=== PATIENT | male | born 1945 | race Caucasian/White ===

== ENCOUNTER 2023-08-01 08:52 | Inpatient (IN) | payer MEDICARE, SELFPAY ==
[2023-07-19 10:59] VITALS: BMI 23.7
[2023-08-01] VITALS (12 sets, daily range): BP systolic 92–137; BP diastolic 40–78; PULSE 60–97; RESP 12–20; TEMP 36.1–36.6; O2SAT 95–100; BMI 23.7
--- NOTE | 2023-08-01 | PATH_ITS ---
[facility] Accession Number: [id number] No. of containers..01 Tissue . 01 Material submitted: . knee - KNEE SYNOVIUM . 01 Diagnosis: Soft Tissue, Knee Synovium, Excision: Extensively necrotic tissue with focal mild acute and chronic inflammation. MRV 08/07/2023 1602 Local . 01 Comment: Given the necrosis of the specimen, the tissue is not further classifiable. . 01 Electronically signed: . Sun Elena MD, Pathologist NPI- [id number] . 01 Gross description: . The specimen is received in formalin labeled with the patient's name, , and knee synovium consists of a pale silva, rubbery soft tissue fragment measuring 5.4 x 3.8 x 3.2 cm. Sectioning reveals a silva, friable, soft cut surface. Glaze Mixer sections are submitted in cassettes A1-A2. ([id number]) /MRV 08/03/2023 1710 Local . 01 Pathologist provided ICD-10: M17.11 . 01 CPT . 045033 Specimen Comment: A courtesy copy of this report has been sent to [phone] Performed at: 01 [facility] [address] [place] [address] Suite [facility], [place], [place] [id number] MD Homer Tirado MD Phone: [phone]
--- NOTE | 2023-08-01 06:00 | DI.RAD.S_ITS ---
PROCEDURE: XR KNEE RT 1TO2V INDICATIONS: TKA TECHNIQUE: 2 view(s) of the knee acquired. COMPARISON: [facility] Outside Film, CR, XR KNEE 4+ VIEWS RIGHT, 06/23/2022, 14:24. [facility], CR, XR KNEE ARTHRITIC SERIES BI, 05/19/2023, 13:51. FINDINGS: Bones: Patient is status post knee joint arthroplasty. Hardware components are in expected positions. Visualized bony structures are intact. Soft tissues: Overlying postoperative changes are noted. IMPRESSION: Expected postsurgical changes. Dictated by: Johnathan Morris M.D. on 08/01/2023 at 14:41 Approved by: Johnathan Morris M.D. on 08/01/2023 at 14:41
[2023-08-01] MEDS: ACETAMINOPHEN 325 MG TABLET 975 MG PO (09:10)
[2023-08-01] MEDS: CELECOXIB 200 MG CAPSULE PO (09:10)
[2023-08-01] MEDS: LACTATED RINGERS 1,000 ML 42 ML IV (09:11)
[2023-08-01] MEDS: VANCOMYCIN 1,000 MG/200 ML PIGGYBACK 200 MG IV (09:31)
--- NOTE | 2023-08-01 10:58 | P.OP_ITS ---
Operative Date/Time/Diagnoses Date of procedure: 08/01/23 Time of procedure: 11:20 Pre-op diagnosis: Right knee OA Post-op diagnosis: same Procedure & Clinicians Procedure: Right total knee arthroplasty Same procedure as scheduled: Yes Indications: The patient has had progressively worsening right knee pain with radiographic changes consistent with arthritis. Non-operative management has failed and the patient has requested total knee replacement. The risks, benefits and alternatives to surgery were discussed with the patient prior to proceeding. Risks discussed included, but were not limited to, failure to relieve pain, stiffness, infection, nerve damage, deep venous thrombosis, pulmonary embolism, stroke, coma, heart attack, permanent paralysis and , as well as the potential need for eventual revision of the prosthetic. Surgeon: Danni Macdonald Temperature Inspector: Boo Guy Anesthesia Type: Spinal Operative Notes Findings: Severe right knee OA, adequate stability, adequate bone Closure Type: primary Specimen(s): none sent Prosthetic devices, grafts, tissues, transplants, or devices: Macdonald and [facility]hew [facility] BCS 2 size 6 femur, size 6 tibia, +9 poly, 35 x 9 mm patella Estimated Blood Loss (mL): 250 Blood products transfused: none Tourniquet time (min): 70 Procedure in detail: The patient was seen in the pre-operative area, where the patient identified the right knee as the operative site and this was marked with my initials. The patient received pre-operative antibiotics, and was taken to the operating room and placed on the operative table in the supine position. After satisfactory anesthesia, a full time babysitter out was performed. The right leg was encircled with a tourniquet about the proximal thigh, and the leg was prepared from the toes to the tourniquet with ChloroPrep in the usual fashion and draped through sterile drapes. The leg was elevated and exsanguinated with Eschmark bandage and the tourniquet inflated to [250] mmHg pressure. A PA was used throughout the procedure and was essential for retraction and intraoperative positioning. They were helpful for implanting the components safely and assisting with the visualization and hemostasis. The knee was approached through an approximately 18 cm incision centered over the patella and carried into the knee through a medial parapatellar arthrotomy. A portion of the medial and lateral meniscus was resected. He had substantial thickening and somewhat atypical tissue in his suprapatellar pouch and synovium. It looked consistent with an atypical synovitis. It was sent for routine path ology. It Did not look consistent with infection. Soft tissue was carefully mobilized around the patella the patella was measured with a caliper. Bone was resected from the patella and the patellar height was reconstituted with up an appropriate sized patellar component. A cover was then placed on the patella. A small amount of additional medial and lateral meniscus was resected. The distal femur was cut at 5?. A [+2] cut was used. It looked like an appropriate distal femoral cut and the cut was made without difficulty. An extramedullary guide was used for the tibial cut. 10 mm was resected off the least affected side.The tibia was prepared. The rotation was assessed. The patient was placed in extension residual medial and lateral meniscus as well as any residual bone was carefully resected. [No] additional tibia was resected. Hemostasis was achieved especially posteriorly. Additional local was injected into the posterior capsule. The extension gap was assessed and additional rele ases for gap balancing were performed as necessary. It was checked with the gap sound cutter. The femoral component was trial was placed and the notch was finished. The rotation was assessed and the appropriate size femoral guide was placed on the distal femur and finishing cuts were made. There was no evidence of notching. The anterior, posterior and chamfer cuts were then made. The posterior osteophytes and soft tissues were then removed. The posterior capsule was injected with part of a mixture of 60 ml 0.25% Marcaine mixed with 20 ml Exparel for post operative pain control. The remainder of this mixture was injected into the capsule and subcutaneous tissues during cement curing. The tibial and femoral components were then placed and the knee placed through a range of motion. Range of motion was [0-130], with good stability throughout the range. The trials were then removed, and the tibia was finished. The bone was prepared with pulsatile lavage, and dried with a sponge. Cement was applied and the final prosthetics placed. Excess cement was removed during and after cement curing. A brief Betadine soak was performed. After confirming there was no extruded cement posteriorly, the final tibial insert was placed. The knee was copiously irrigated and the tourniquet deflated. Hemostasis was obtained with the Bovie cautery. A drain was placed and brought out superolaterally. The capsule was closed with interrupted nonabsorbable suture. The subcutaneous layer was closed with barbed sutures, and the skin with a running 3-0 V-Lock suture and Surgical glue. An Aquacel Ag dressing was applied and the patient was taken to recovery having tolerated the procedure well. Complications: none Post-operative Condition: stable Disposition: Acute Care Plan for aftercare: The patient will be maintained on a standard total knee replacement protocol with weight bearing as tolerated. The patient will receive Xarelto and sequential compression devices for DVT prophylaxis. The patient will be discharged home when safe for the home environment.
--- NOTE | 2023-08-01 10:58 | PM.PREOP ---
Pre-operative Note Interval Note History & Physical reviewed/Exam performed by Physician: Yes Changes to H&P: No
[2023-08-01] MEDS: CEFAZOLIN 2 GM/100 ML PREMIX 100 ML IV ×2 (11:28→18:44)
[2023-08-01] MEDS: TRANEXAMIC ACID 1,000 MG VIAL 2000 MG INJ (11:37)
--- NOTE | 2023-08-01 12:04 | SUR.OPER ---
Supine on padded OR bed. Pillow under head, arms secured on padded armboards <90 degree abduction. Safety belt across torso. Non-operative leg secured with tape over blanket over lower leg. Operative leg secured in DeMayo positioner. Foam padded brace at thigh of operative leg.
[2023-08-01] MEDS: ACETAMINOPHEN 325 MG TABLET 650 MG PO ×2 (15:02→21:10)
[2023-08-01] MEDS: IBUPROFEN 400 MG TABLET PO ×3 (15:03→21:09)
[2023-08-01] MEDS: polyethylene glycoL 3350 17 GM POWD.PACK PO (15:05)
--- NOTE | 2023-08-01 15:17 | PT.IIE ---
Current Diagnoses Unilateral primary osteoarthritis, right knee (08/01/23) Surgery Performed Operation Date: 08/01/23 10:45 Actual Procedures p Total Knee Arthroplasty(Right) - Danni Macdonald MD Surgical History (Last Updated 07/19/23 @ 11:17 by Kishan Nation, RN) History of lung biopsy History of total knee arthroplasty Medical History (Last Updated 07/19/23 @ 11:41 by Kishan Nation, MARIA R) Family history of malignant hyperthermia History of DVT (deep vein thrombosis) Prostate cancer Physical Therapy Inpatient Evaluation/Re-Eval M1 PT/OT-IP Prior Functional Status Start: 08/01/23 16:39 Freq: NEEDED Status: Active Protocol: Document 08/01/23 16:41 AB (Rec: 08/01/23 17:08 AB [id number]) Medical Review Prior Functional Status Medical History Reviewed Yes Communication Pt is able to express and communicate all needs. Mobility and Gait IND, did not use AD prior to surgery Activities of Daily Living and IADL's IND Prior Functional Level (Other details) Pt reports he has a tremor at baseline. Social History Household Members spouse Living Arrangements House Number of Floors (Floors) One Floor Number of Stairs To Enter/Railing? 1 small CRISTHIAN through garage, no railing Home Environment Standard Height Toilet,Walk in Shower Home Equipment Front Wheel Walker,Straight Cane,Raised Toilet Seat Without Armrests,Shower Seat without Backrest,Hand Held Shower Additional Social History Comment The pt reports there is one very sturdy towel apoorva near the toilet which he can use as needed. His spouse is able to assist him 24/7. M2 PT-IP Current Condition Start: 08/01/23 16:39 Freq: NEEDED Status: Active Protocol: Document 08/01/23 16:41 AB (Rec: 08/01/23 17:08 AB [id number]) Physical Therapy Current Condition Current Condition Evaluation Date 08/01/23 Treatment Diagnosis s/p right TKA Onset Date 08/01/23 M3 PT-IP Subjective Start: 08/01/23 16:39 Freq: NEEDED Status: Active Protocol: Document 08/01/23 16:41 AB (Rec: 08/01/23 17:08 AB [id number]) Subjective Physical Therapy Visit Type Type Initial Evaluation Visit Start Time 15:17 Visit Stop Time 16:14 Total Visit Minutes 57 Notes The pt presents semi supine in bed with family at bedside, after handoff from RN and having just recieved pain medication. Number of INTAKE COUNSELOR Visits 0 Physical Therapy Visit Comments Patient Comments The pt reports he is currently at 4/10 right knee pain, but is feeling fine otherwise. He is agreeable to PT evaluation this afternoon. Patient Goals The pt reports he would like to go home today if he is able . Therapy Pain Assessment Pain When Pain Assessed At Rest Pain Present Pain Present Pain Reported Location Right Knee Intensity 4 Scale Used Numeric (0 - 10) Pain Management Techniques Apply Cold,Elevation,Re- positioning M4 PT-IP Mobility and Gait Start: 08/01/23 16:39 Freq: NEEDED Status: Active Protocol: Document 08/01/23 16:41 AB (Rec: 08/01/23 17:08 AB [id number]) PT-Bed Mobility Assessment Rolling Type of Rolling Bilateral Level of Assist Independent Supine to Sit Supine to Sit Independent Sit to Supine Sit to Supine Independent Scooting Scooting to Edge of Bed Independent Scooting Up and Down in Bed Independent PT-Transfer Assessment Sit to and From Stand Sit to and from Stand Independent,Use of Upper Extremities Equipment Transfer Assistive Device Gait Belt,Front Wheeled Walker Transfers Transfer Destination Bed,Toilet Transfer Technique Stand Step Pivot Transfer Ability Level of Assist Standby Assistance,1 Person Assistance,Use of Upper Extremities Gait Assessment Gait Gait Assistance Required: Standby Assistance,1 Person Assist Distance (Feet) 290 Assistive Devices Assistive Device Gait Belt,Front Wheeled Walker Gait Deviations General Gait Pattern Antalgic,Decreased Stride Length,Decreased Feet Clearance Factors Limiting Gait Function Factors Limiting Gait Function Decreased Activity Tolerance, Decreased Strength,Limited Range of Motion,Pain Comments Gait Comments Gait deviations are consistent with surgical procedure. Stair Climbing Assessment Evaluation Level of Assist On Stairs Standby Assistance,1 Person Assistance Devices Stair Climbing Assistive Devices Left Railing,Right Railing Technique/Endurance Stair Climbing Direction Ascend and Descend Stair Climbing Technique Step to Step Number of Steps Climbed 3 Query Text: Stair Climbing Set # Repetitions (reps) 1 Comments Stair Climbing Comments Pt was education on leading with non surgical LE when ascending and with surgical LE when descending. PT-Balance Assessment Sitting Balance and Reactions Static Sitting Balance Ability Normal Dynamic Sitting Balance Ability Normal Standing Balance and Reactions Static Standing Balance Ability Normal Dynamic Standing Balance Ability Good M5 PT-IP Objective Assessments Start: 08/01/23 16:39 Freq: NEEDED Status: Active Protocol: Document 08/01/23 16:41 AB (Rec: 08/01/23 17:08 AB [id number]) Orientation Orientation/Cognition Level of Alertness Alert Orientation Name,Date,Place,Situation Language Function Ability No Deficits Noted Safety Awareness Understands Safety Issues Memory Description No Deficits Noted Gross Range of Motion Upper Extremity ROM Assessment Within Functional Limits Lower Extremity ROM Assessment Right Impaired Strength Upper Extremity Strength Assessment Within Functional Limits Lower Extremity Strength Assessment Right Impaired M6 PT-IP Treatment Start: 08/01/23 16:39 Freq: NEEDED Status: Active Protocol: Document 08/01/23 16:41 AB (Rec: 08/01/23 17:08 AB [id number]) Physical Therapy Treatment Exercises Knee ROM Measurement 5-90 Education Education Provided Precautions,Weight Bearing Status,Post-Op Packet,Safety Brace Education Patient,Caregiver Other Treatments Other Treatment Performed Pt's BP was measured at 127/76 mmHg in semi supine at the start of the session, and he denied symptoms of lightheadedness or dizzines throughout. The pt has urinary incontinence when he performs STS, but is not aware until after PT points this out. He continues to have this incontinence with subsequent STS and when performing stairs . At end of session, the pt returned to his bed with all needs, call light within reach and family at bedside. RN was notified about findings. M7 PT-IP Assessment and Plan Start: 08/01/23 16:39 Freq: NEEDED Status: Active Protocol: Document 08/01/23 16:41 AB (Rec: 08/01/23 17:08 AB [id number]) PT Summary Assessment and Plan Potential Rehabilitation Potential Good Status of Condition at Evaluation Stable Summary Impairments Pain,ROM,Strength,Transfers, Gait,Activity Tolerance Assessment Summary Jeffrey Sandhu is a 77 year old male patient who is s/p right TKA performed on 08/01/23. Today's PT evaluation revealed RLE ROM and muscular weakness which are causing gait deviations and difficulty performing functional mobility , however they are consistent with this surgical procedure. Currently, he is able to perform bed mobility and STS with IND, but requires SBA for transfers, ambulation and stairs. He is able to ambulate 290ft with FWW and is able to ascend/descend 3 steps with 2 hand rails. No abnormal instability or LOB were noted at this time, and he demonstrates good safety awareness. Based on these findings and his current level of function, discharge to home and outpatient PT is recommended by PT. However, he would benefit from skilled PT during his hospital stay. Of note, the pt had urinary incontinence which he was unaware of until PT pointed this out when performing STS, ambulation and stairs, which is not typical for the pt. Goals Bed Mobility Goal Independent Transfer Goal Independent,Front Wheeled Walker Gait Goal Independent,Front Wheel Walker Gait Distance 500 Other Goals Pt to be able to ascend/ descend 3 steps with IND using proper technique to demonstrate good LE strength to perform functional mobility safely upon discharge. Days to Meet Goals 5 Frequency of Treatment Frequency Of Treatment Twice a Day Treatment Plan Physical Therapy Treatment Plan Bed Mobility Training,Transfer Training,Gait Training, Therapeutic Exercise,Balance Retraining,Post Op Education, Neuromuscular Re-ed Other Recommendations and Next Treatment Continue focusing on Focus functional mobility; add therapeutic exericses as indicated. Weight Bearing Status Weight Bearing Status Weight Bear as Tolerated Recommendations To Nursing Amount of Assist Needed Standby Assistance Discharge Recommendations PT Discharge Recommendations Home,Outpatient PT Transportation Needs at Discharge Private Vehicle
[2023-08-01] MEDS: OXYCODONE IR 10 MG TABLET PO (16:24)
[2023-08-01] MEDS: LACTATED RINGERS 1,000 ML 100 ML IV (18:44)
[2023-08-01] MEDS: RIVAROXABAN 10 MG TABLET 20 MG PO (21:09)
[2023-08-01] MEDS: ASPIRIN EC 81 MG TABLET PO (21:09)
[2023-08-01] MEDS: DOCUSATE 100 MG CAPSULE PO (21:09)
[2023-08-02 02:00] VITALS: BP 115/59; PULSE 46; TEMP 36.3; O2SAT 98
[2023-08-02] MEDS: CEFAZOLIN 2 GM/100 ML PREMIX 100 ML IV (02:20)
[2023-08-02] MEDS: IBUPROFEN 400 MG TABLET PO (02:21)
[2023-08-02] MEDS: ACETAMINOPHEN 325 MG TABLET 650 MG PO ×2 (02:22→08:48)
[2023-08-02 06:09] LABS: Hematocrit 32.6 % (41-53); Hemoglobin 11.5 g/dL (13.5-17.5)
[2023-08-02 06:27] VITALS: BP 105/55; PULSE 47; RESP 12; TEMP 36.3; O2SAT 97
--- NOTE | 2023-08-02 07:14 | PM.DS.1 ---
History of Present Illness History of Present Illness Date Patient Seen: 08/02/23 Time Patient Seen: 07:14 Chief complaint: INPT Narrative: Operative Date/Time/Diagnoses Date of procedure: 08/01/23 Time of procedure: 11:20 Pre-op diagnosis: Right knee OA Post-op diagnosis: same Procedure & Clinicians Procedure: Right total knee arthroplasty Same procedure as scheduled: Yes Indications: The patient has had progressively worsening right knee pain with radiographic changes consistent with arthritis. Non-operative management has failed and the patient has requested total knee replacement. The risks, benefits and alternatives to surgery were discussed with the patient prior to proceeding. Risks discussed included, but were not limited to, failure to relieve pain, stiffness, infection, nerve damage, deep venous thrombosis, pulmonary embolism, stroke, coma, heart attack, permanent paralysis and , as well as the potential need for eventual revision of the prosthetic. Surgeon: Danni Macdonald Admissions Representative: Boo Guy Anesthesia Type: Spinal Operative Notes Findings: Severe right knee OA, adequate stability, adequate bone Closure Type: primary Specimen(s): none sent Prosthetic devices, grafts, tissues, transplants, or devices: Macdonald and Nephew [employer] BCS 2 size 6 femur, size 6 tibia, +9 poly, 35 x 9 mm patella Estimated Blood Loss (mL): 250 Blood products transfused: none Tourniquet time (min): 70 Discharge Providers Provider Date of admission: 08/01/23 08:52 Discharge Date: 08/02/23 Primary care physician: Joshua Palmer ND Consults: 08/01/23 06:00 Consult to Anesthesiology Routine Comment: Consulting Provider: Anesthesiologist Reason for consultation: Regional block for post operative pain control 08/01/23 14:31 Consult to Discharge Planning Routine Comment: Consult to Occupational Therapy Evaluate & Treat Comment: Physician Instructions: Evaluate and treat Consult to Physical Therapy Evaluate & Treat Comment: Physician Instructions: postop TKA protocol Discharge provider: Zaynab Sands PA-C Summary Hospital Course Discharge Diagnosis: Right knee osteoarthritis, s/p right total knee arthroplasty Hospital Course: Mr Sandhu's hospital course was unremarkable. On the morning of POD# 1, he was feeling well and wanted to go home. He was eating and voiding without difficulty and his pain was well-controlled with oral medication. He was evaluated by PT and felt to be safe for discharge to home. Exam Vital Signs (past 8 hours): - 08/02/23 02:00 08/02/23 06:27 Temperature 97.4 F L 97.3 F L Pulse Rate 46 L 47 L Respiratory Rate 12 Blood Pressure 115/59 L 105/55 L Pulse Oximetry 98 97 Oxygen Delivery Method Room Air Oxygen Flow Rate 0 Narrative Exam Narrative: 5/5 strength in hip flexors, quadriceps, hamstrings, DF, PF, EHL on right. Sensation to light touch intact throughout RLE. Calf soft and compressible. LETITIA wrap over Aquacel CDI. Objective Labs 08/02/23 05:25 Labs: Laboratory Results - last 24 hr 08/02/23 05:25 Hgb 11.5 L Hct 32.6 L PFSH Medical History (Updated 07/19/23 @ 11:41 by Kishan Nation RN) Family history of malignant hyperthermia History of DVT (deep vein thrombosis) Prostate cancer Surgical History (Updated 07/19/23 @ 11:17 by Kishan Nation RN) History of lung biopsy History of total knee arthroplasty Social History household members: spouse Smoking Status: Never smoker alcohol intake: current Discharge Assessment & Plan Assessment and Plan Assessment: Right knee osteoarthritis, s/p right total knee arthroplasty Plan of Treatment: Discharge home after PT today for additional training/reinforcement. Pt has d/c medications at home. Xarelto as per preop for VTE prophylaxis. Outpt PT, f/u in office in 2 weeks as scheduled. Discharge Plan Discharge Plan Patient Disposition: Home Discharge orders & Medications Prescriptions: Continued Xarelto 20 mg Tablet 20 mg PO DAILY Rx Instructions: must administer with evening meal latanoprost 0.005 % Drops 1 drp OPHTHALMIC (EYE) DAILY Follow up/Referrals: Joshua Palmer ARNP [Primary Care Provider] - Danni Macdonald MD [Physician] - As previously scheduled (Follow up w/ Es Natarajan PA-C, on 08/10/2023 @ 4:10 pm at [facility] office in [place].) Diet/Activity/Treatments Diet: Diet as Tolerated Activity: Walk frequently! Cold/Heat Therapy: Ice to knee as needed for pain. Skin/Wound/Dressing Care Report to your healthcare provider any signs of infection, such as:: chills, fever, night sweats, unusual drainage and unusual redness Dressing: May remove LETITIA wrap and shower on 08/04/2023. Leave dressing in place until follow up in office. No bathing or otherwise soaking incision. Call the office if the dressing becomes saturated inside. Visit Report/Discharge Packet Instructions: DI for Knee Replacement, DI for Prescription Opioid Use Stand Alone Forms: Patient Portal/API, Stroke Signs & Symptoms, Surgery Discharge Discharge Data Primary Care Provider: Joshua Palmer VTE Deep Vein Thrombosis/Pulmonary Embolism Present on Admission: No
[2023-08-02 08:00] VITALS: BP 115/58; PULSE 52; RESP 18; TEMP 36.1; O2SAT 99
--- NOTE | 2023-08-02 08:41 | CM.DANOTE ---
Initial DCP Assessment Note: Pt is a 77 year-old man admitted for total right knee replacement. Plan is for d/c later this morning following PT/OT visit. No further d/c needs identified at this time. will transport home. Payor: [employer] Medicare Attending: Danni Macdonald PCP: Joshua GOODMAN reviewed EMR for medical status and identified d/c needs. Pt has d/c orders and summary in EMR, pt expresses ready to go home, pain is under control. PT recomments outpatient PT, and is assessed to be safe for home w/family assistance. Discharge Planning/Care Management CM Discharge Assessment Start: 08/02/23 08:37 Freq: Status: Active Protocol: Document 08/02/23 08:38 DPL (Rec: 08/02/23 08:41 DPL [id number]) Discharge Planning Assessment Assigned Foreign Exchange Trader REX Armijo Advance Directives? Yes Advance Directives on File No History Provided By Patient,Medical Record Prior Living Arrangements House Household Members spouse Type of transporation used prior to Drives own vehicle admit Independent with ADL's Yes Is patient alert and oriented? Yes Needs Assistance With Home Chores / Shopping Caregiver for Another No Comment N/A DME Already Rented / Owned FWW / Walker,Cane Comment Shower seat, raised toilet seat Comment None Barriers to Discharge No Discharge Plan Home Community Services Physical Therapy Transportation Arrangement Spouse Referrals Initiated None needed Review Status In Process Please Provide Date Initial DC 08/02/23 Assessment Was Performed Pre-Anesthesia Assessment Start: 07/19/23 10:59 Freq: Status: Complete Protocol: Document 07/19/23 10:59 AK (Rec: 07/19/23 11:51 AK [id number]) Pre-Anesthesia Assessment Preferred Name Jeffrey Patient Information Reviewed Via Phone Assessment Assessment Completed With Patient Primary Care Provider Joshua Palmer Comment [facility] Medical Clearance Received No Seen Specialist in Last 12 Months Yes Specialist Seen Orthopedist Preferred Language Kinyarwanda Height 180.34 cm Weight 77.111 kg Body Mass Index (BMI) 23.7 Hearing Ability Hearing Impaired,Use of Hearing Aid Visual Impairment Partially Limited Visual Assist Glasses Dentition Type Teeth, Natural Present Barriers to Learning Auditory Hx Anesthesia Reactions No Hx Family Anesthesia Reaction Yes: Father-MH Hx Malignant Hyperthermia Yes: Father Hx Blood Transfusions No Hx Blood Transfusion Reaction No Comment OR notified regarding family Hx of MH Anesthesia Review Requested No Morgue Attendant No alcohol intake current alcohol intake frequency a few times a week Smoking Status Never smoker Substance Use Type does not use Pain Present Pain Reported Comment Right knee Musculoskeletal Symptoms Joint Pain History of Falling (Recent or History of No ) Patient is completely paralyzed or No completely immobile Ambulatory Aid None/bed rest/nurse assist Gait/Transferring Normal/bedrest/immobile Mental Status Oriented to own ability Is patient on oxygen? No Does patient have IVORY/SOB No Hx Sleep Apnea No Currently Taking a Beta Oksana No Can You Climb a Flight of Stairs Without Yes SOB Hx Chest Pain No Hx SOB No Hx Syncope or Dizziness No Anti-Coagulant Therapy Yes: Xarelto-to stop 3 days prior to DOS per patient Has a Explosive Ordnance Manager No Hx Pacemaker/ICD No Pacemaker Rep Required? No Diet Type At Home Regular Dysphagia No Urinary Catheter Present No Hx Urinary Self Catheterization No Diabetes No Hx Drug Resistant Organism No Presence of External or Internal Medical Yes: Left TKA Devices Marital Status Lives With spouse Current Living Arrangements House Number of Floors (Floors) One Floor Number of Stairs To Enter/Railing? 1/yes Support System Spouse Does the Patient Have Assistance After Yes Surgery Patient Discharge Plan Description Return Home Feels Safe in Current Environment Yes Been Physically Hurt or Threatened By a No Person in Current Environment Do you have thoughts of harming yourself None or others? Are you currently considering suicide? No Do you have a plan to hurt yourself or No Plan others? Do You Have Any Spiritual Beliefs That No May Affect Your HC Choices? Do You Have Any Cultural Practices That No May Affect Your HC Choices? Who Can We Speak to About Patient's Care Nathalie Metzgeramie Identifying Code for Release of Patient declined Information Health Care Proxy/Next of Kin Nathalie Edson Health Care Proxy Emergency Contact Name Nathalie Sandhu Emergency Contact Advance Directives? Yes Requested Patient Bring Advanced Yes Directives DOS Power of Job Order Clerk Yes Power of Job Order Clerk Name Nathalie Sandhu Power of Job Order Clerk PAC Instructions Assistance for 24 hours post- op,Do not shave/clip surgical site,Medications to take/avoid ,Nasal antibiotic,NPO,Post-op transportation,Pre-surgical wash,Sensory aids,Sturdy shoes /comfortable clothes,Do not bring valuables and remove jewelry
[2023-08-02] MEDS: OXYCODONE IR 5 MG TABLET PO (08:49)
[2023-08-02] MEDS: DOCUSATE 100 MG CAPSULE PO (08:49)
--- NOTE | 2023-08-02 09:00 | OT.IP.EVAL ---
Current Diagnoses Unilateral primary osteoarthritis, right knee (08/01/23) Surgery Performed Operation Date: 08/01/23 10:45 Actual Procedures p Total Knee Arthroplasty(Right) - Danni Macdonald MD Past Medical History (Last Updated 07/19/23 @ 11:41 by Kishan Nation, RN) Family history of malignant hyperthermia History of DVT (deep vein thrombosis) Prostate cancer Surgical History (Last Updated 07/19/23 @ 11:17 by Kishan Nation, RN) History of lung biopsy History of total knee arthroplasty Occupational Therapy Inpatient Evaluation/Re-Eval M1 PT/OT-IP Prior Functional Status Start: 08/01/23 16:39 Freq: NEEDED Status: Active Protocol: Document 08/02/23 09:00 [facility] (Rec: 08/02/23 09:30 [facility] [id number]) Medical Review Prior Functional Status Medical History Reviewed Yes Communication Pt is able to express and communicate all needs. Mobility and Gait IND, did not use AD prior to surgery Activities of Daily Living and IADL's IND but had difficulty to put on his socks and shoes. Prior Functional Level (Other details) Pt reports he has a tremor at baseline. Social History Household Members spouse Living Arrangements House Number of Floors (Floors) One Floor Number of Stairs To Enter/Railing? 1 small CRISTHIAN through garage, no railing Home Environment Standard Height Toilet,Walk in Shower Home Equipment Front Wheel Walker,Straight Cane,Raised Toilet Seat Without Armrests,Shower Seat without Backrest,Hand Held Shower,Greige Goods Examiner Additional Social History Comment The pt reports there is one very sturdy towel apoorva near the toilet which he can use as needed. His spouse is able to assist him 24/7. M2 OT-IP Current Condition Start: 08/02/23 09:18 Freq: Status: Active Protocol: Document 08/02/23 09:00 [facility] (Rec: 08/02/23 09:30 [facility] [id number]) Occupational Therapy Current Condition Current Condition Evaluation Date 08/02/23 Treatment Diagnosis S/P R TKA M3 OT- IP Subjective and Pain Start: 08/02/23 09:18 Freq: Status: Active Protocol: Document 08/02/23 09:00 [facility] (Rec: 08/02/23 09:30 [facility] [id number]) OT- Subjective Occupational Therapy Visit Type Type Initial Evaluation Visit Start Time 08:35 Visit Stop Time 09:11 Total Visit Minutes 27 Notes Pt seen from [id number] and [phone]- [phone] Occupational Therapy Visit Comments Patient Comments Pt agreed to get dressed and work with OT. Patient/Caregiver Goals TO go home. OT Pain Assessment Pain When Pain Assessed At Rest Pain Present Pain Present Pain Reported Location Right Knee Intensity 5 Scale Used Numeric (0 - 10) M4 OT- IP ADL's Start: 08/02/23 09:18 Freq: Status: Active Protocol: Document 08/02/23 09:00 [facility] (Rec: 08/02/23 09:30 [facility] [id number]) OT [id number]-[id number] General Evaluation Self-Feeding Ability Independent OT ADL-Grooming General Evaluation Grooming Ability Independent OT ADL-Oral Care General Eval Oral Care Ability Independent OT ADL-Dressing General Eval Upper Body Dressing Ability Independent Lower Body Dressing Ability Minimal Assistance Comments OT Dressing Comments Assist to tie his shoes and thread the non slip socks through his pants. Educated pt to britney his RLE first and take out last . In addition to put his boxers and pants on so just having to stand one time to britney over his hips. OT ADL-Toileting General Evaluation Toileting Ability Independent Comments OT Toileting Comments Educated pt to use the urinal at night as he gets up 2-3 times. Also educated pt to be mindful of his knee positioning while wiping and that standing can be easier and use of wet wipes for hygiene needs. OT ADL-Bathing Comments OT Bathing Comments Pt states his will be able to assist him. M5 OT- IP IADL's Start: 08/02/23 09:18 Freq: Status: Active Protocol: Document 08/02/23 09:00 [facility] (Rec: 08/02/23 09:30 [facility] [id number]) OT-Instrumental Activities of Daily Living Deficits IADL Deficits Identified Deficits Home Safety Awareness Awareness of Need for Assistance at Home Good Awareness Ability to Problem Solve Emergency Able to Problem Solve Situations Meal Preparation Meal Preparation Caregiver Provides Assist Senior Project Controls Specialist Senior Project Controls Specialist Caregiver Provides Assist M6 OT- IP Functional Cognition Start: 08/02/23 09:18 Freq: Status: Active Protocol: Document 08/02/23 09:00 [facility] (Rec: 08/02/23 09:30 [facility] [id number]) Cognitive Factors Limiting Selfcare Function Cognitive Ability Level of Alertness Alert Patient Orientation Name,Age,Birthday,Month,Date, Year,Day of Week,Place, Situation Attention Span Ability Capable of Focused Attention, Capable of Sustained Attention Ability to Follow Commands Able to Follow Multi-Step Commands Safety Awareness No Deficits Noted Cognitive Comments Cognitive Assessment Comments Pt intact. OT- Vision and Hearing OT- Hearing Assessment OT- Hearing Assessment WFL OT- Vision Assessment Visual Acuity Glasses All The Time Visual Attentiveness WFL Occular Pursuits WFL M7 OT- IP Mobility and Balance Start: 08/02/23 09:18 Freq: Status: Active Protocol: Document 08/02/23 09:00 [facility] (Rec: 08/02/23 09:30 [facility] [id number]) OT- Bed Mobility Assessment Supine to Sit Supine to Sit Assist Independent OT-Transfer Assessment Sit to and From Stand Sit to and from Stand Standby Assistance Transfers Transfer Ability Standby Assistance Technique Transfer Destination Bed,Chair,Toilet Transfer Technique Stand Step Pivot Devices Transfer Assistive Devices Front Wheeled Walker Comments Mobility Comments Pt able to do transfers and bed mobility with good safety. Able to talk about car transfers best to back up to the car with the seat all the way back and rotate his legs and trunk at the same time to get in. OT- Balance Assessment Sitting Balance and Reactions Static Sitting Balance Ability Normal Dynamic Sitting Balance Ability Normal Standing Balance and Reactions Static Standing Balance Ability Good Dynamic Standing Balance Ability Good M8 OT- IP Objective Assessments Start: 08/02/23 09:18 Freq: Status: Active Protocol: Document 08/02/23 09:00 [facility] (Rec: 08/02/23 09:30 [facility] [id number]) OT Gross Range of Motion Upper Extremity Range of Motion Assessment Within Functional Limits OT- Coordination Assessment Comments Coordination Comments Pt has tremors in his RUE. M9 OT- IP Assessment and Plan Start: 08/02/23 09:18 Freq: Status: Active Protocol: Document 08/02/23 09:00 [facility] (Rec: 08/02/23 09:30 [facility] [id number]) OT Summary Assessment and Plan Potential Rehabilitation Potential Excellent Analytic Complexity at Evaluation Low Summary OT Impairments Pain,Balance,Functional Mobility,Dressing,Bathing Progress Towards Goals Progressing Toward Goals Assessment Summary Pt low complexity and main barrier is pain. Pt has a supportive to assist at home. Pt to go home today and have outpt PT. Goals Dressing Goal Independent Bathing Goal Independent Shower Transfer Goal Independent Days to Meet Goals 2 Frequency of Treatment Frequency Of Treatment Once a Day Treatment Plan OT Treatment Plan ADL Training,Functional Mobility,Patient/Family Education,Discharge Planning Discharge Recommendations OT Discharge Recommendations Home with Assistance, Outpatient PT Transportation Needs at Discharge Private Vehicle
--- NOTE | 2023-08-02 09:08 | PT.IPTN ---
Current Diagnoses Unilateral primary osteoarthritis, right knee (08/01/23) Surgery Performed Operation Date: 08/01/23 10:45 Actual Procedures p Total Knee Arthroplasty(Right) - Danni Macdonald MD Physical Therapy Treatment Note M2 PT-IP Current Condition Start: 08/01/23 16:39 Freq: NEEDED Status: Active Protocol: Document 08/01/23 16:41 AB (Rec: 08/01/23 17:08 AB [id number]) Physical Therapy Current Condition Current Condition Evaluation Date 08/01/23 Treatment Diagnosis s/p right TKA Onset Date 08/01/23 M3 PT-IP Subjective Start: 08/01/23 16:39 Freq: NEEDED Status: Active Protocol: Document 08/02/23 09:40 TS (Rec: 08/02/23 09:52 TS [id number]) Subjective Physical Therapy Visit Type Type Treatment Note Visit Start Time 09:08 Visit Stop Time 09:30 Total Visit Minutes 22 Number of GLOBE CLEANER Visits 1 Physical Therapy Visit Comments Patient Comments Pt reports he is feeling good, is agreeable to PT. M4 PT-IP Mobility and Gait Start: 08/01/23 16:39 Freq: NEEDED Status: Active Protocol: Document 08/02/23 09:40 TS (Rec: 08/02/23 09:52 TS [id number]) PT-Transfer Assessment Sit to and From Stand Sit to and from Stand Independent Equipment Transfer Assistive Device Gait Belt,Front Wheeled Walker Comments Mobility Comments Pt found resting in chair, agreeable to PT. Sit to stand from chair with FWW Ind with BUE support pushing from arms of chair. He ambulated ~220' SBA w/FWW and emerging step thru gait, had no buckling or LOB. He performed stairs x3 SBA with B handrail assist, demonstrated good carryover of step sequencing. PT was left back in chair with call light nearby, all needs met. Gait Assessment Gait Gait Assistance Required: Standby Assistance,1 Person Assist Distance (Feet) 220 Assistive Devices Assistive Device Gait Belt,Front Wheeled Walker Gait Deviations General Gait Pattern Antalgic,Decreased Stride Length,Decreased Feet Clearance Factors Limiting Gait Function Factors Limiting Gait Function Decreased Strength,Limited Range of Motion,Pain Comments Gait Comments See mobility comments. Stair Climbing Assessment Evaluation Level of Assist On Stairs Standby Assistance,1 Person Assistance Devices Stair Climbing Assistive Devices Left Railing,Right Railing Technique/Endurance Stair Climbing Direction Ascend and Descend Stair Climbing Technique Step to Step Number of Steps Climbed 3 Stair Climbing Set # Repetitions (reps) 1 Comments Stair Climbing Comments See mobility comments. PT-Balance Assessment Sitting Balance and Reactions Static Sitting Balance Ability Normal Dynamic Sitting Balance Ability Normal Standing Balance and Reactions Static Standing Balance Ability Good Dynamic Standing Balance Ability Good M5 PT-IP Objective Assessments Start: 08/01/23 16:39 Freq: NEEDED Status: Active Protocol: Document 08/01/23 16:41 AB (Rec: 08/01/23 17:08 AB [id number]) Orientation Orientation/Cognition Level of Alertness Alert Orientation Name,Date,Place,Situation Language Function Ability No Deficits Noted Safety Awareness Understands Safety Issues Memory Description No Deficits Noted Gross Range of Motion Upper Extremity ROM Assessment Within Functional Limits Lower Extremity ROM Assessment Right Impaired Strength Upper Extremity Strength Assessment Within Functional Limits Lower Extremity Strength Assessment Right Impaired M6 PT-IP Treatment Start: 08/01/23 16:39 Freq: NEEDED Status: Active Protocol: Document 08/01/23 16:41 AB (Rec: 08/01/23 17:08 AB [id number]) Physical Therapy Treatment Exercises Knee ROM Measurement 5-90 Education Education Provided Precautions,Weight Bearing Status,Post-Op Packet,Safety Brace Education Patient,Caregiver Other Treatments Other Treatment Performed Pt's BP was measured at 127/76 mmHg in semi supine at the start of the session, and he denied symptoms of lightheadedness or dizzines throughout. The pt has urinary incontinence when he performs STS, but is not aware until after PT points this out. He continues to have this incontinence with subsequent STS and when performing stairs . At end of session, the pt returned to his bed with all needs, call light within reach and family at bedside. RN was notified about findings. M7 PT-IP Assessment and Plan Start: 08/01/23 16:39 Freq: NEEDED Status: Active Protocol: Document 08/02/23 09:40 TS (Rec: 08/02/23 09:52 TS [id number]) PT Summary Assessment and Plan Potential Rehabilitation Potential Good Summary Impairments Pain,ROM,Strength,Transfers, Gait,Activity Tolerance Progress Towards Goals Progressing Toward Goals Assessment Summary Pt is progressing well with his mobility. He continues to ambulate long distances with FWW and has good tolerance to gait. He continues to perform stairs x3 SBA with B handrails . He demonstrates good carryover of step sequencing from previous session. Education was provided on home exercise routine. PT continues to recommend return home w/assist and outpatient PT. Goals Bed Mobility Goal Independent Transfer Goal Independent,Front Wheeled Walker Gait Goal Independent,Front Wheel Walker Gait Distance 500 Other Goals Pt to be able to ascend/ descend 3 steps with IND using proper technique to demonstrate good LE strength to perform functional mobility safely upon discharge. Days to Meet Goals 5 Frequency of Treatment Frequency Of Treatment Twice a Day Treatment Plan Physical Therapy Treatment Plan Bed Mobility Training,Transfer Training,Gait Training, Therapeutic Exercise,Balance Retraining,Post Op Education, Neuromuscular Re-ed Other Recommendations and Next Treatment Continue focusing on Focus functional mobility; add therapeutic exericses as indicated. Weight Bearing Status Weight Bearing Status Weight Bear as Tolerated Recommendations To Nursing Amount of Assist Needed Standby Assistance Discharge Recommendations PT Discharge Recommendations Home with Assistance, Outpatient PT Transportation Needs at Discharge Private Vehicle
--- NOTE | 2023-08-02 10:34 | PC.NURSE ---
Day shift: Discharge teaching gone over with patient and patient's spouse. All questions answered, they both stated understanding. PIV d/c'ed prior to discharge. Pt has all belongings. BERTHA Ventura took pt downstairs via wheelchair to exit.
== END 2023-08-02 10:35 | disposition home or self-care (01) | DRG 470 ==
PROVIDERS: Admitting Provider Orthopaedic Surgery; PCP Registered Nurse; Referring Provider Orthopaedic Surgery; Visit Provider Orthopaedic Surgery
PROC: 0SRC0JZ Replacement of Right Knee Joint with Synthetic Substitute, Open Approach (ICD-10-PCS; CPT 27447; principal; 2023-08-01 10:45)
DX: M17.11 Unilateral primary osteoarthritis, right knee (principal); Z85.46 Personal history of malignant neoplasm of prostate; Z86.718 Personal history of other venous thrombosis and embolism; Z79.01 Long term (current) use of anticoagulants; Z96.652 Presence of left artificial knee joint; M65.861 Other synovitis and tenosynovitis, right lower leg
CPT/HCPCS: 36415; 73560; 85014; 85018; 93005; 93010; 97161; 97165; 97530; 97535; C1776; J0690; J1100; J2405; J2704